=== PATIENT | female | born 1985 | race Caucasian/White ===

== ENCOUNTER 2019-01-14 15:19 | Emergency (ER) | payer MEDICAID ==
[~2019-01-14] VITALS: Ht 154.9 cm; Wt 66.2 kg
[2019-01-14 15:49] VITALS: Ht 154.9 cm; Wt 66.2 kg
[2019-01-14 17:06] VITALS: BP 119/73
== END 2019-01-14 17:06 | disposition home or self-care (01) ==
LOC: ED 15:19
DX: J02.9 Acute pharyngitis, unspecified (principal); Z98.890 Other specified postprocedural states; Z88.0 Allergy status to penicillin

== ENCOUNTER 2019-04-08 16:49 | Emergency (ER) | payer MEDICAID ==
[~2019-04-08] VITALS: Ht 154.9 cm; Wt 65.8 kg
[2019-04-08 17:58] VITALS: Ht 154.9 cm; Wt 65.8 kg
[2019-04-08 19:31] VITALS: BP 103/73
== END 2019-04-08 19:31 | disposition home or self-care (01) ==
LOC: ED 16:49
DX: J30.9 Allergic rhinitis, unspecified (principal); H10.11 Acute atopic conjunctivitis, right eye; Z88.0 Allergy status to penicillin; Z98.890 Other specified postprocedural states